=== PATIENT | female | born 2000 | race Caucasian/White ===

== ENCOUNTER 2022-09-04 15:03 | Emergency (ER) | payer BC ==
[2022-09-04] MEDS ORDERED: HYDROcodone/Acetaminophen 5/325 mg Tablet ONE (16:05)
== END 2022-09-04 17:08 | disposition home or self-care (01) ==
LOC: CSHERS 15:03
DX: S82.842A Displaced bimalleolar fracture of left lower leg, initial encounter for closed fracture (principal); Y93.51 Activity, roller skating (inline) and skateboarding
CPT/HCPCS: 27767